=== PATIENT | female | born 1945 | race Caucasian/White ===

== ENCOUNTER 2017-11-25 16:56 | Emergency (ER) | payer OTHER ==
[2017-11-25 17:00] VITALS: BP 148/65; BMI 28.4
--- NOTE | 2017-11-25 18:03 | DR.EXTPAIN ---
HPI - Time seen Time seen: 18:00 - PCP Primary Care Physician: LORELEI NORMAN - Complaint/Symptoms Chief Complaint:: PT. C/O RIGHT HEEL PAIN X 2 WEEKS. SWELLING NOTED TO SIDE OF RIGHT FOOT. PT. DENIES INJURY. - Nurses notes reviewed Nurses Notes Review: Yes - Source History Provided: Patient - Mode of arrival Mode of Arrival: Ambulatory - Timing Onset of Chief Complaint: 11/11/17 PMH - PMH Past Medical History: Yes Past Medical History: Anxiety, Depression, Dyslipidemia, Hypertension Past Medical History Comment: HEART PALPITATIONS, SKIN CANCER Past Surgical History: Yes Surgical History: Appendectomy, Hysterectomy, Other Past Surgical History Comment: PARTIAL HYSTERECTOMY, SKIN CANCER REMOVAL, BACK SURGERY X 3 - Family History History of Family Medical Conditions: No - Social History Does patient currently use any type of tobacco product: Yes Have you used tobacco products in the last 12 months: Yes Type of Tobacco Use: Cigarettes Does any household member use tobacco: No Alcohol Use: Rarely Do you use any recreational Drugs:: No Lives With: Alone Lives Where: Home - infectious screening In the last 2 months have you had wt loss of >10#?: NO Have you had fever, night sweats or hemotysis?: No Have you traveled outside the country in the last 6 months?: No Isolation: Standard PE - Vital Signs Vitals: Temperature 98.6 F Pulse Rate 63 Respiratory Rate 16 Blood Pressure 148/65 O2 Sat by Pulse Oximetry 99 - Discharge Plan Condition: Stable - Follow ups/Referrals Follow ups/Referrals: Lorelei Norman [Primary Care Provider] - 3 days - Instructions
--- NOTE | 2017-11-25 19:12 | RAD ---
Three views of the right foot. Indication: Right heel pain. Conclusion: There is plantar calcaneal enthesophyte at the plantar fascia attachment. The remaining r ight foot shows no abnormality, specifically no evidence of fracture or degenerative disease. Reported By:
== END 2017-11-25 19:16 | disposition left against medical advice (07) ==
LOC: ER 17:05
DX: M79.671 Pain in right foot (principal); M77.31 Calcaneal spur, right foot
CPT/HCPCS: 73630; 99282